=== PATIENT | female | born 1945 | race Caucasian/White ===

== ENCOUNTER → 2024-03-23 12:56 | Outpatient (REF) | payer OTHER, SELFPAY ==
[2024-03-23 14:28] LABS: Hematocrit 36.5 % (37.0-47.0); Hemoglobin 11.8 g/dL (12.0-16.0); Mean Corp Hgb Conc. 32.3 g/dL (33.0-37.0); Mean Corpuscular Hgb 29.6 pg (27.0-31.0); Mean Corpuscular Volume 91.7 fL (81.0-99.0); Mean Platelet Volume 10.8 fL (7.4-10.4); Platelet Count 343 10^3/uL (130-400); Red Blood Cell Count 3.98 10^6/uL (4.20-5.40); Red Cell Dist. Width 16.4 % (11.5-14.5); White Blood Cell Count 5.3 10^3/uL (4.8-10.8)
[2024-03-23 14:41] LABS: ALT (SGPT) 13 U/L (0-35); AST (SGOT) 25 U/L (14-36); Alkaline Phosphatase 177 U/L (38-126); Blood Urea Nitrogen 17 mg/dl (7-17); Calcium 8.7 mg/dl (8.4-10.2); Carbon Dioxide 24 mmol/L (22-30); Chloride 109 mmol/L (98-107); Glucose 74 mg/dl (70-99); Magnesium 2.4 mg/dl (1.6-2.3); Potassium 4.8 mmol/L (3.5-5.1); Sodium 144 mmol/L (135-145); Total Bilirubin 0.4 mg/dl (0.2-1.3); Total Protein 5.7 g/dl (6.3-8.2); eGFR > 60.00
[2024-03-23 15:10] LABS: TSH 1.48 uIU/ml (0.47-4.68)
[2024-03-23 16:50] LABS: Free T4 0.91 ng/dl (0.78-2.19)
== END ==
LOC: OLABWHC 12:56
PROVIDERS: ATTENDING PHYSICIAN Family Medicine
DX: E03.9 Hypothyroidism, unspecified (principal); N18.9 Chronic kidney disease, unspecified; D64.9 Anemia, unspecified
CPT/HCPCS: 36415; 80053; 83735; 84439; 84443; 85027

== ENCOUNTER 2024-05-18 10:29 | Emergency (ER) | payer OTHER, SELFPAY ==
[2024-05-18 10:36] VITALS: BP 132/68
[2024-05-18] MEDS: TORADOL 15 MG IM (11:16)
[2024-05-18 12:00] VITALS: BP 133/52
--- NOTE | 2024-05-18 12:04 | ED.GENMED ---
History of Present Illness
General
Chief Complaint: Fall
Source: patient and family
Exam Limitations: none
Time Seen by Provider: 05/18/24 10:36
Nursing documentation reviewed up to this point in time: agreed with
History of Present Illness
History of Present Illness:
79-year-old female with past medical history of hyperlipidemia, anxiety, GERD presenting to the emergency department today after rolling out of bed 2 days ago was able to walk and go shopping throughout the day that day but has had some ongoing pain
to the right ribs and right ankle. Think she may have hit her head denies any severe headache numbness weakness.
Review of Systems
Review of Systems
Allergies reviewed?: Yes
All Other Systems: ROS reviewed and negative except as documented in HPI and ROS
Phy Exam
Physical Exam
Physical Exam:
GENERAL: Alert , in no apparent distress
EYE: pupils equal and reactive
NECK: Supple, no significant adenopathy.
ENT: o/p clr, mmm.
CARDIAC: Pain to the right sided lateral ribs otherwise clear lungs regular rate and rhythm .
LUNGS: Clear breath sounds bilaterally, no acute respiratory distress, no wheezes/rales/rhonchi
ABDOMEN: Soft, without focal tenderness, no r/g, no cvat
NEUROLOGICAL: Alert and oriented, no focal neuro deficits 5 out of 5 upper and lower extremity strength normal sensation with palpating bilaterally normal finger-nose and [id number] no pronator drift
SKIN: Warm and dry, skin intact.
MUSCULOSKELETAL: Very mild pain to the right ankle good range of motion strength able to ambulate no edema, well perfused.
PSYCH: Normal and appropriate interaction.
Course
Orders/Labs/Results
Orders:
Orders
05/18/24 11:10
CT Head W/o Iv Contrast Urgent
Comment:
Reason For Exam: fall hit head 48 hours ago
Ketorolac [Toradol] 15 mg IM NOW STA
CR Ribs-right 3 Vw W/pa Chest* Urgent
Comment:
Reason For Exam: right sided rib pain
05/18/24 11:30
Ankle, Right 3 view CR [CR Ankle - Right Min 3 Views *] Urgent
Comment:
Reason For Exam: pain
CR Foot - Right Min 3 Views Urgent
Comment:
Reason For Exam: pain
05/18/24 12:03
Incentive Spirometry [Rx Incentive Spirometry] [RESP] Urgent
Frequency: q1h while awake
Vital Signs
Initial and Last Documented VS:
Initial Vital Signs
Temp Pulse Resp BP Pulse Ox
98.2 F 87 18 132/68 99
05/18/24 10:36 05/18/24 10:36 05/18/24 10:36 05/18/24 10:36 05/18/24 10:36
Last Documented Vital Signs
Temp Pulse Resp BP Pulse Ox
98.2 F 67 18 133/52 98
05/18/24 10:36 05/18/24 12:00 05/18/24 12:00 05/18/24 12:00 05/18/24 12:00
MDM/Problems Addressed
MDM/Problems Addressed:
79-year-old female presenting to the emergency department after rolling out of bed that was roughly 2 feet in the ground hitting her right side. Here she mainly has pain to the right ribs. She was found to have rib fractures but no evidence of
lung pathology. She was given medication for pain which controlled symptoms well able to breathe fully and was given incentive spirometer. Stable for outpatient management in this regard. Also possible distal avulsion fracture of the distal
fibula. She was given a boot for walking but very minimal discomfort on examination of this area. Otherwise stable for close outpatient management return precautions given.
*Critical Care Note
Total Time (30-74mins, 75-104mins- exclusive of procedures): Not Applicable
ED Attending Note
-
Portions of this chart may have been created with voice recognition software.� Occasional wrong word or��sound alike� substitutions may have occurred due to the inherent limitations of voice recognition software.
Discharge Plan
Departure
Patient Disposition: Home (Routine Discharge)
Date of Disposition: 05/18/24
Time of Disposition: 13:42
Patient with high blood pressure during this ER visit?: No
Condition: Good
Covid-19: Not Applicable
Discharge Problem:
Right rib fracture, Fracture of right ankle
Instructions: Rib fractures in adults, Preventing falls in adults
Prescriptions:
New
diclofenac epolamine 1.3 % patch 12 hour
1 patch topical BID Qty: 30 0RF
oxycodone-acetaminophen [Percocet] 5-325 mg tablet
1 tab PO Q8H PRN (Reason: Pain) Qty: 7 0RF
Referrals:
David Alvarado MD [Family Provider] -
Tyler Pringle MD [Active] - Follow up in 5-7 days
Activity Restrictions/Additional Instructions:
You are found to have rib fractures on the right side. Please use the pain medications to help with symptoms.. Additionally you are found to have an ankle fracture. Please use the boot as needed and follow-up closely with orthopedics. Return to
the emergency department any worsening, new or concerning symptoms.
Interventions
Interventions:
*Risk Screen - Suicide Last Done: 05/18/24 10:36
*General Assessment Last Done: 05/18/24 10:36
*Neglect/Abuse Screening Last Done: 05/18/24 10:36
ED- Fall Risk Assessment Last Done: 05/18/24 14:08
*ED COVID-19 Vaccine History Last Done: 05/18/24 10:36
*Nursing Disposition Last Done: 05/18/24 14:08
ED-Musculoskeletal Assessment Last Done: 05/18/24 10:36
ED- Neurological Assessment Last Done: 05/18/24 10:36
ED-Skin Assessment Last Done: 05/18/24 10:36
Discharge Date and Time
Print Language: WELSH
== END 2024-05-18 14:09 | disposition home or self-care (01) ==
LOC: EMR 10:29
PROVIDERS: EMERGENCY PHYSICIAN Emergency Medicine; FAMILY PHYSICIAN Family Medicine
DX: S22.31XA Fracture of one rib, right side, initial encounter for closed fracture (principal); S82.891A Other fracture of right lower leg, initial encounter for closed fracture; W06.XXXA Fall from bed, initial encounter; E78.5 Hyperlipidemia, unspecified; K21.9 Gastro-esophageal reflux disease without esophagitis
CPT/HCPCS: 96372; 99284; 70450; 71101; 73610; 73630

== ENCOUNTER → 2024-08-03 11:26 | Outpatient (REF) | payer OTHER, SELFPAY ==
[2024-08-03 12:30] LABS: Hematocrit 43.6 % (37.0-47.0); Hemoglobin 13.5 g/dL (12.0-16.0); Mean Corpuscular Hgb 29.5 pg (27.0-31.0); Mean Corpuscular Volume 95.4 fL (81.0-99.0); Mean Platelet Volume 11.2 fL (7.4-10.4); Platelet Count 287 10^3/uL (130-400); Red Blood Cell Count 4.57 10^6/uL (4.20-5.40); Red Cell Dist. Width 15.2 % (11.5-14.5); White Blood Cell Count 7.4 10^3/uL (4.8-10.8)
[2024-08-03 12:53] LABS: Albumin 3.6 g/dl (3.5-5.0); Blood Urea Nitrogen 22 mg/dl (7-17); Calcium 8.6 mg/dl (8.4-10.2); Carbon Dioxide 23 mmol/L (22-30); Chloride 106 mmol/L (98-107); Glucose 162 mg/dl (70-99); Phosphorus 4.3 mg/dl (2.5-4.5); Potassium 4.7 mmol/L (3.5-5.1); Sodium 139 mmol/L (135-145); eGFR 57.31
[2024-08-03 13:07] LABS: Vitamin D, 25-OH*** 19.7 ng/mL (30-80)
[2024-08-03 13:22] LABS: Cortisol, Random 18.1 ug/dl
== END ==
LOC: OLABWIL 11:26
PROVIDERS: ATTENDING PHYSICIAN Internal Medicine
DX: E83.51 Hypocalcemia (principal); I95.1 Orthostatic hypotension
CPT/HCPCS: 36415; 80069; 82306; 82533; 84155; 84165; 85027

== ENCOUNTER → 2025-02-21 12:10 | Outpatient (REF) | payer OTHER, SELFPAY | LOC: HWRAD 12:10 | PROVIDERS: ATTENDING PHYSICIAN Nurse Practitioner Family | DX: R22.1 Localized swelling, mass and lump, neck (principal) | CPT/HCPCS: 76536 ==

== ENCOUNTER → 2025-03-06 11:18 | Outpatient (REF) | payer OTHER, SELFPAY ==
[2025-03-06 12:41] LABS: Hematocrit 27.7 % (37.0-47.0); Hemoglobin 8.1 g/dL (12.0-16.0); Mean Corp Hgb Conc. 29.2 g/dL (33.0-37.0); Mean Corpuscular Volume 76.7 fL (81.0-99.0); Platelet Count 388 10^3/uL (130-400); Red Cell Dist. Width 17.8 % (11.5-14.5)
[2025-03-06 12:58] LABS: ALT (SGPT) 12 U/L (0-35); AST (SGOT) 20 U/L (14-36); Albumin 3.5 g/dl (3.5-5.0); Alkaline Phosphatase 179 U/L (38-126); Blood Urea Nitrogen 17 mg/dl (7-17); Calcium 8.3 mg/dl (8.4-10.2); Carbon Dioxide 23 mmol/L (22-30); Chloride 113 mmol/L (98-107); Glucose 97 mg/dl (70-99); HDL Cholesterol 52 mg/dl; LDL Cholesterol, Calculated 41 mg/dl; Potassium 4.2 mmol/L (3.5-5.1); Sodium 142 mmol/L (135-145); Total Protein 6.5 g/dl (6.3-8.2); Very Low Density Lipoprotein 29 mg/dl (0-30); eGFR > 60.00
[2025-03-06 13:28] LABS: TSH 1.03 uIU/ml (0.47-4.68)
[2025-03-06 14:43] LABS: Glycohemoglobin (HgbA1c) 5.4 % (4.0-5.6)
== END ==
LOC: OLABWIL 11:18
PROVIDERS: ATTENDING PHYSICIAN Nurse Practitioner Family
DX: E78.2 Mixed hyperlipidemia (principal); E03.8 Other specified hypothyroidism; Z13.1 Encounter for screening for diabetes mellitus
CPT/HCPCS: 36415; 80053; 80061; 83036; 84439; 84443; 85027

== ENCOUNTER → 2025-03-13 09:06 | Outpatient (REF) | payer OTHER, SELFPAY | LOC: WDC 09:06 | PROVIDERS: ATTENDING PHYSICIAN Obstetrics & Gynecology; FAMILY PHYSICIAN Nurse Practitioner Family | DX: R92.8 Other abnormal and inconclusive findings on diagnostic imaging of breast (principal) | CPT/HCPCS: 76642; 77062; 77066 ==

== ENCOUNTER 2025-04-05 20:40 | Emergency (ER) | payer OTHER, SELFPAY ==
[2025-04-05 20:43] VITALS: BP 139/74
--- NOTE | 2025-04-06 02:30 | ED.GENMED ---
History of Present Illness
General
Chief Complaint: Fall
Source: patient and family
Exam Limitations: none
Time Seen by Provider: 04/05/25 23:06
Nursing documentation reviewed up to this point in time: agreed with
History of Present Illness
History of Present Illness:
79-year-old female past medical history of hyperlipidemia, GERD presenting to the emergency department after falling hitting her head. Did not lose consciousness. Has had some neck pain and some headache since. Denies any numbness weakness chest
pain or shortness of breath. Did have some shoulder pain as well. Able to move at the shoulder though.
Review of Systems
Review of Systems
Allergies reviewed?: Yes
All Other Systems: ROS reviewed and negative except as documented in HPI and ROS
Phy Exam
Physical Exam
Physical Exam:
GENERAL: Alert , in no apparent distress
EYE: pupils equal and reactive
NECK: Supple, no significant adenopathy.
ENT: o/p clr, mmm.
CARDIAC: Regular rate and rhythm .
LUNGS: Clear breath sounds bilaterally, no acute respiratory distress, no wheezes/rales/rhonchi
ABDOMEN: Soft, without focal tenderness, no r/g, no cvat
NEUROLOGICAL: Alert and oriented, no focal neuro deficits discomfort of the left shoulder otherwise good range of motion no redness or warmth
SKIN: Warm and dry, skin intact.
MUSCULOSKELETAL: No edema, well perfused.
PSYCH: Normal and appropriate interaction.
Course
Orders/Labs/Results
Orders:
Orders
04/05/25 20:50
Shoulder, Right 2 Views [CR Shoulder - Right Min 2 View] Urgent
Comment:
Reason For Exam: pain
04/05/25 20:51
Humerus, Right 2 Views [CR Humerus - Right Min 2 View*] Urgent
Comment:
Reason For Exam: pain
04/06/25 00:13
CT Cervical Spine W/o Iv Contr Urgent
Comment:
Reason For Exam: fall neck pain
CT Head W/o Iv Contrast Urgent
Comment:
Reason For Exam: fall hit devon of head
Vital Signs
Initial and Last Documented VS:
Initial Vital Signs
Temp Pulse Resp BP Pulse Ox
98.2 F 64 16 139/74 98
04/05/25 20:43 04/05/25 20:43 04/05/25 20:43 04/05/25 20:43 04/05/25 20:43
Last Documented Vital Signs
Temp Pulse Resp BP Pulse Ox
98.2 F 64 16 139/74 98
04/05/25 20:43 04/05/25 20:43 04/05/25 20:43 04/05/25 20:43 04/05/25 20:43
MDM/Problems Addressed
MDM/Problems Addressed:
79-year-old female presenting to the emergency department today after a fall hitting her head and left shoulder. Here x-rays without evidence of acute fracture or emergent injury to the left shoulder head neck CT without emergent findings. Stable
for discharge at this time. Return precautions given.
*Pulse Oximetry
SaO2: 98
Oxygen Mode of Delivery: Room air
Patient hypoxic: no (98)
*Critical Care Note
Total Time (30-74mins, 75-104mins- exclusive of procedures): Not Applicable
ED Attending Note
-
Portions of this chart may have been created with voice recognition software.� Occasional wrong word or��sound alike� substitutions may have occurred due to the inherent limitations of voice recognition software.
Discharge Plan
Departure
Patient Disposition: Home (Routine Discharge)
Date of Disposition: 04/06/25
Time of Disposition: 02:31
Patient with high blood pressure during this ER visit?: No
Condition: Good
Covid-19: Not Applicable
Discharge Problem:
Fall, Shoulder sprain
Instructions: Preventing falls in adults
Prescriptions:
No Action
diclofenac epolamine 1.3 % patch 12 hour
1 patch topical BID Qty: 30 0RF
oxycodone-acetaminophen [Percocet] 5-325 mg tablet
1 tab PO Q8H PRN (Reason: Pain) Qty: 7 0RF
Referrals:
Linh Duran CRNP [Family Provider, Family Practice]
Activity Restrictions/Additional Instructions:
You came to the emergency department today with concerns of fall. Here you had reassuring assessment. Return for any worsening, new or concerning symptoms.
Interventions
Interventions:
*Risk Screen - Suicide Last Done: 04/05/25 20:43
*Neglect/Abuse Screening Last Done: 04/05/25 20:43
*ED COVID-19 Vaccine History Last Done: 04/05/25 23:21
ED-Musculoskeletal Assessment Last Done: 04/05/25 23:14
ED- Neurological Assessment Last Done: 04/05/25 23:12
ED-Skin Assessment Last Done: 04/05/25 23:14
Discharge Date and Time
Print Language: WELSH
== END 2025-04-06 02:57 | disposition home or self-care (01) ==
LOC: EMR 20:40
PROVIDERS: EMERGENCY PHYSICIAN Student in an Organized Health Care Education/Training Program; FAMILY PHYSICIAN Nurse Practitioner Family
DX: S43.401A Unspecified sprain of right shoulder joint, initial encounter (principal); W19.XXXA Unspecified fall, initial encounter; E78.5 Hyperlipidemia, unspecified
CPT/HCPCS: 99284; 70450; 72125; 73030; 73060

== ENCOUNTER → 2025-04-12 09:04 | Outpatient (REF) | payer OTHER, SELFPAY | LOC: RST 09:04 | PROVIDERS: ATTENDING PHYSICIAN Nurse Practitioner Family | DX: R13.10 Dysphagia, unspecified (principal) | CPT/HCPCS: 74230; 92611 ==